=== PATIENT | male | born 1990 | race Caucasian/White ===

== ENCOUNTER 2017-01-09 11:33 | Emergency (ER) | payer OTHER ==
[~2017-01-09] VITALS: Ht 182.9 cm; Wt 90.7 kg
[2017-01-09] MEDS ORDERED: AZASAN100 MG PO (11:42)
[2017-01-09] MEDS ORDERED: LIALDA1.2 GM PO (11:43)
[2017-01-09] MEDS ORDERED: NORCO 5-325 TA1 EACH PO (12:27)
[2017-01-09] MEDS ORDERED: HYDROCODONE-IB1 EACH PO (13:06)
[2017-01-09 13:50] VITALS: BP 122/78
== END 2017-01-09 13:52 | disposition home or self-care (01) ==
LOC: ER 11:33
DX: S43.084A Other dislocation of right shoulder joint, initial encounter (principal); W17.89XA Other fall from one level to another, initial encounter; Y93.89 Activity, other specified; Y92.89 Other specified places as the place of occurrence of the external cause; Y99.8 Other external cause status